=== PATIENT | female | born 1985 | race Two or more races ===

== ENCOUNTER 2017-04-11 23:51 | Inpatient (IN) | payer BC ==
[2017-04-12] MEDS ORDERED: Nalbuphine 10 MG/1 ML Vial IVPUSH PRN ×2 (00:35→22:00)
[2017-04-12] MEDS ORDERED: Water For Irrigation,Sterile 1,000 ML Container IRR PRN (00:35)
[2017-04-12] MEDS ORDERED: Lidocaine 1% 50 ML MDV INJECT PRN (00:35)
[2017-04-12] MEDS ORDERED: Methylergonovine 0.2 MG/1 ML Amp IM PRN (00:35)
[2017-04-12] MEDS ORDERED: Ampicillin 2 GM in Sodium Chloride 0.9% 100 ML IV ONE ×2 (00:35→12:31)
[2017-04-12] MEDS ORDERED: Terbutaline 1 MG/ML SDV SUBCUT PRN (00:35)
[2017-04-12] MEDS ORDERED: Carboprost Tromethamine 250 MCG/1 ML Amp IM PRN (00:35)
[2017-04-12] MEDS ORDERED: Misoprostol 200 MCG Tab PO PRN (00:35)
[2017-04-12] MEDS ORDERED: Sodium Chloride 0.9% 2.5 ML Syringe FLUSH PRN (00:35)
[2017-04-12] MEDS ORDERED: Sodium Chloride 0.9% 10 ML Syringe FLUSH PRN (00:35)
[2017-04-12] MEDS ORDERED: Oxytocin/0.9 % Sodium Chloride 30 UNIT/500 ML BAG IV SCH ×2 (00:45)
[2017-04-12] MEDS ORDERED: Misoprostol 25 MCG (1/4 of 100 MCG) Tab VAG SCH (00:45)
[2017-04-12] MEDS: Lactated Ringers 1,000 ML IV SCH ×3 (00:57→19:36)
[2017-04-12] MEDS: Misoprostol 25 MCG (1/4 of 100 MCG) Tab VAG PRN ×2 (01:25→05:19)
[2017-04-12] MEDS: Misoprostol 200 MCG Tab PO SCH ×2 (01:28→05:21)
--- NOTE | 2017-04-12 08:04 | PCM.LDHP ---
L&D History of Present Illness - General Date of Service: 04/12/17 Admit Problem/Dx: Patient Status Order with Admit Dx/Problem 04/12/17 00:35 Patient Status [ADT] Routine Admission Diagnosis/Problem Admission Diagnosis/Problem Planned 04/12/17 07:58 31 yo EDC 04/06/2017 40 6/7wk, O+, RI, GBS pos. 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: Social & Family History - Family History HEENT: Reports: None Cardiac: Reports: Hypertension - Tobacco Use Smoking Status *Q: Never Smoker Second Hand Smoke Exposure: No - Recreational Drug Use Recreational Drug Use: No H&P Review of Systems - Review of Systems: Review Of Systems: See Below General: Reports: No Symptoms HEENT: Reports: No Symptoms Pulmonary: Reports: No Symptoms Cardiovascular: Reports: No Symptoms Gastrointestinal: Reports: No Symptoms Genitourinary: Reports: No Symptoms Musculoskeletal: Reports: No Symptoms Skin: Reports: No Symptoms Psychiatric: Reports: No Symptoms Neurological: Reports: No Symptoms Hematologic/Lymphatic: Reports: No Symptoms Immunologic: Reports: No Symptoms L&D Exam - Exam Exam: See Below - Vital Signs Weight: 87.997 kg - OB Specific Fundal Height In cm: 41 Contraction Intensity: Mild to Moderate Movement: Active Heart Tones: Present Presentation: Vertex Estimated Weight: 3300 - Exam General: Alert, Oriented, Cooperative Lungs: Normal Respiratory Effort GI/Abdominal Exam: Soft, Non-Tender Rectal Exam: Deferred Extremities: Normal Range of Motion, Non-Tender, No Pedal Edema, Normal Capillary Refill Neurological: Reflexes Equal Bilateral, Normal Gait, Normal Speech, Normal Tone Psychiatric: Alert, Normal Affect, Normal Mood - Patient Data Lab Results Last 24 hrs: Laboratory Results - last 24 hr 04/12/17 04/12/17 Range/Units 00:57 00:57 WBC 10.22 (4.0-11.0) K/uL RBC 4.21 L (4.30-5.90) M/uL Hgb 11.7 L (12.0-16.0) g/dL Hct 35.1 L (36.0-46.0) % MCV 83.4 (80.0-98.0) fL MCH 27.8 (27.0-32.0) pg MCHC 33.3 (31.0-37.0) g/dL RDW Std Deviation 44.6 (28.0-62.0) fl RDW Coeff of Tracie 15 (11.0-15.0) % Plt Count 246 (150-400) K/uL MPV 12.10 H (7.40-12.00) fL Nucleated RBC % 0.0 /100WBC Nucleated RBCs # 0 K/uL Blood Type O POSITIVE Antibody Screen NEGATIVE Result Diagrams: 04/12/17 00:57 - Problem List (1) Supervision of normal IUP (intrauterine ) in primigravida SNOMED Code(s): 13517643, 020014249, 727050435 ICD Code: Z34.00 - ENCNTR FOR SUPRVSN OF NORMAL FIRST , UNSP TRIMESTER Status: Acute Priority: High Current Visit: Yes Qualifiers: Trimester: third trimester Qualified Code(s): Z34.03 - Encounter for supervision of normal first , third trimester (2) Post-dates SNOMED Code(s): 23224396 ICD Code: O48.0 - POST-TERM Status: Acute Priority: High Current Visit: Yes Qualifiers: Post-term type: 40-42 weeks gestation Qualified Code(s): O48.0 - Post-term Problem List Initiated/Reviewed/Updated: Yes Orders Last 24hrs: Active Orders 24 hr Category Date Time Status Patient Status [ADT] Routine ADT 04/12/17 00:35 Active Bedrest Bathroom Privileges [RC] ASDIRECTED Care 04/12/17 00:35 Active Communication Order [RC] ASDIRECTED Care 04/12/17 00:35 Active Communication Order [RC] ASDIRECTED Care 04/12/17 00:35 Active Communication Order [RC] ASDIRECTED Care 04/12/17 00:35 Active Heart Tones [RC] CONTINUOUS Care 04/12/17 00:35 Active Non Stress Test [RC] PER UNIT ROUTINE Care 04/12/17 00:35 Active May Shower [RC] ASDIRECTED Care 04/12/17 00:35 Active Notify Provider [RC] PRN Care 04/12/17 00:35 Active Notify Provider [RC] PRN Care 04/12/17 00:35 Active Notify Provider [RC] PRN Care 04/12/17 00:35 Active Notify Provider [RC] STAT Care 04/12/17 00:35 Active Oxygen Therapy [RC] ASDIRECTED Care 04/12/17 00:35 Active Up ad Torri [RC] ASDIRECTED Care 04/12/17 00:35 Active Vaginal Exam [RC] PRN Care 04/12/17 00:35 Active Vaginal Exam [RC] PRN Care 04/12/17 00:35 Active Vital Signs [RC] PER UNIT ROUTINE Care 04/12/17 00:35 Active Vital Signs [RC] PER UNIT ROUTINE Care 04/12/17 00:35 Active Carboprost Tromethamine [Hemabate DS] Med 04/12/17 00:35 Active 250 mcg IM ASDIRECTED PRN Lactated Ringers [Ringers, Lactated] 1,000 ml Med 04/12/17 00:45 Active IV ASDIRECTED Lidocaine 1% [Xylocaine 1%] Med 04/12/17 00:35 Active 50 ml INJECT .ONCE PRN Methylergonovine [Methergine] Med 04/12/17 00:35 Active 0.2 mg IM ASDIRECTED PRN Misoprostol [Cytotec] Med 04/12/17 00:35 Active 200 mcg PO .ONCE PRN Misoprostol [Cytotec] Med 04/12/17 09:20 Active 25 mcg PO Q4H Misoprostol [Cytotec] Med 04/12/17 00:45 Active 25 mcg VAG .ONCE Misoprostol [Cytotec] Med 04/12/17 00:35 Active 25 mcg VAG Q4H PRN Nalbuphine [Nubain] Med 04/12/17 00:35 Active 10 mg IVPUSH Q1H PRN Oxytocin/0.9 % Sodium Chloride [Oxytocin 30 Unit/500 ML Med 04/12/17 00:45 Active -NS] 30 unit in 500 ml IV TITRATE Oxytocin/0.9 % Sodium Chloride [Oxytocin 30 Unit/500 ML Med 04/12/17 00:45 Active -NS] 30 unit in 500 ml IV TITRATE Sodium Chloride 0.9% [Saline Flush] Med 04/12/17 00:35 Active 10 ml FLUSH ASDIRECTED PRN Sodium Chloride 0.9% [Saline Flush] Med 04/12/17 00:35 Active 2.5 ml FLUSH ASDIRECTED PRN Terbutaline [Brethine] Med 04/12/17 00:35 Active 0.25 mg SUBCUT ASDIRECTED PRN Water For Irrigation,Sterile [Sterile Water for Med 04/12/17 00:35 Active Irrigation] 1,000 ml IRR ASDIRECTED PRN Scalp Electrode [WOMSER] Per Unit Routine Oth 04/12/17 00:35 Ordered Medication Administration Instruction [OM.PC] Q3H Oth 04/12/17 00:45 Ordered Peripheral IV Insertion Adult [OM.PC] Routine Oth 04/12/17 00:35 Ordered Resuscitation Status Routine Resus Stat 04/12/17 00:35 Ordered Medication Orders Carboprost Tromethamine (Hemabate Ds) 250 mcg IM ASDIRECTED PRN PRN Reason: Post Hemorrhage Lactated Ringer's (Ringers, Lactated) 1,000 mls @ 150 mls/hr IV ASDIRECTED ML Last Admin: 04/12/17 00:57 Dose: 999 mls/hr Oxytocin/Sodium Chloride (Oxytocin 30 Unit/500 Ml-Ns) 30 unit in 500 mls @ 500 mls/hr IV TITRATE ML Oxytocin/Sodium Chloride (Oxytocin 30 Unit/500 Ml-Ns) 30 unit in 500 mls @ 2 mls/hr IV TITRATE ML; 2 MUNITS/MIN PRN Reason: Protocol Lidocaine HCl (Xylocaine 1%) 50 ml INJECT .ONCE PRN PRN Reason: Laceration repair Methylergonovine Maleate (Methergine) 0.2 mg IM ASDIRECTED PRN PRN Reason: Post Hemorrhage Misoprostol (Cytotec) 200 mcg PO .ONCE PRN PRN Reason: Post Hemorrhage Misoprostol (Cytotec) 25 mcg VAG .ONCE ML Misoprostol (Cytotec) 25 mcg VAG Q4H PRN PRN Reason: Cervical Ripening Last Admin: 04/12/17 05:19 Dose: 25 mcg Admin: 04/12/17 01:25 Dose: 25 mcg Misoprostol (Cytotec) 25 mcg PO Q4H ML Nalbuphine HCl (Nubain) 10 mg IVPUSH Q1H PRN PRN Reason: Pain (severe 7-10) Sodium Chloride (Saline Flush) 10 ml FLUSH ASDIRECTED PRN PRN Reason: Keep Vein Open Sodium Chloride (Saline Flush) 2.5 ml FLUSH ASDIRECTED PRN PRN Reason: Keep Vein Open Sterile Water (Sterile Water For Irrigation) 1,000 ml IRR ASDIRECTED PRN PRN Reason: delivery Terbutaline Sulfate (Brethine) 0.25 mg SUBCUT ASDIRECTED PRN PRN Reason: Tacysystole Assessment/Plan Comment:: IOL A:31 yo EDC 04/06/2017 40 6/7wk, O+, RI, GBS pos. IOL for post dates P:IOL with cytotec to pitocin, pain med / epidural prn, anticipate . Dr Schilling updated
[2017-04-12] MEDS ORDERED: Ropivacaine 100 ML ONE (13:19)
[2017-04-12] MEDS ORDERED: fentaNYL 100 MCG/2 ML SDV ONE ×2 (13:19→20:33)
--- NOTE | 2017-04-12 14:07 | PCM.PREANE ---
Preanesthetic Assessment - Anesthesia/Transfusion/Family Hx Anesthesia History: No Prior Anesthesia Family History of Anesthesia Reaction: No Transfusion History: No Prior Transfusion(s) Intubation History: Unknown - Review of Systems General: No Symptoms Pulmonary: No Symptoms Cardiovascular: No Symptoms Gastrointestinal: No Symptoms Neurological: No Symptoms Other: Reports: None (maternal VS good and stable at this time. care revealed no problems. ) - Physical Assessment NPO Status Date: 04/12/17 NPO Status Time: 12:30 Height: 5 ft 4 in Weight: 194 lb ASA Class: 1 Mental Status: Alert & Oriented x3 Airway Class: Mallampati = 3 Dentition: Reports: Normal Dentition Thyro-Mental Finger Breadths: 3 Mouth Opening Finger Breadths: 3 ROM/Head Extension: Full Lungs: Clear to Auscultation Cardiovascular: Regular Rate, Regular Rhythm - Lab Values: Laboratory Last Values WBC 10.22 K/uL (4.0-11.0) 04/12/17 00:57 RBC 4.21 M/uL (4.30-5.90) L 04/12/17 00:57 Hgb 11.7 g/dL (12.0-16.0) L 04/12/17 00:57 Hct 35.1 % (36.0-46.0) L 04/12/17 00:57 MCV 83.4 fL (80.0-98.0) 04/12/17 00:57 MCH 27.8 pg (27.0-32.0) 04/12/17 00:57 MCHC 33.3 g/dL (31.0-37.0) 04/12/17 00:57 RDW Std Deviation 44.6 fl (28.0-62.0) 04/12/17 00:57 RDW Coeff of Tracie 15 % (11.0-15.0) 04/12/17 00:57 Plt Count 246 K/uL (150-400) 04/12/17 00:57 MPV 12.10 fL (7.40-12.00) H 04/12/17 00:57 Nucleated RBC % 0.0 /100WBC 04/12/17 00:57 Nucleated RBCs # 0 K/uL 04/12/17 00:57 Blood Type O POSITIVE 04/12/17 00:57 Antibody Screen NEGATIVE 04/12/17 00:57 - Allergies Allergies/Adverse Reactions: Allergies Allergy/AdvReac Type Severity Reaction Status Date / Time No Known Allergies Allergy Verified 04/12/17 00:31 - Acknowledgements Anesthesia Type Planned: Epidural Pt an Appropriate Candidate for the Planned Anesthesia: Yes Alternatives and Risks of Anesthesia Discussed w Pt/Guardian: Yes Pt/Guardian Understands and Agrees with Anesthesia Plan: Yes PreAnesthesia Questionnaire - Past Health History Medical/Surgical History: 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 Smoking Status *Q: Never Smoker Second Hand Smoke Exposure: No Recreational Drug Use History: No - HOME MEDS Home Medications: Home Meds Vit W-Ca,Fe,FA(<1 mg) [ Vitamins] 1 tab PO DAILY 04/12/17 [ History] - CURRENT (IN HOUSE) MEDS Current Meds: Current Medications Carboprost Tromethamine (Hemabate Ds) 250 mcg IM ASDIRECTED PRN PRN Reason: Post Hemorrhage Lactated Ringer's (Ringers, Lactated) 1,000 mls @ 150 mls/hr IV ASDIRECTED ML Last Admin: 04/12/17 13:56 Dose: 999 mls/hr Oxytocin/Sodium Chloride (Oxytocin 30 Unit/500 Ml-Ns) 30 unit in 500 mls @ 500 mls/hr IV TITRATE ML Oxytocin/Sodium Chloride (Oxytocin 30 Unit/500 Ml-Ns) 30 unit in 500 mls @ 2 mls/hr IV TITRATE ML; 2 MUNITS/MIN PRN Reason: Protocol Last Titration: 04/12/17 13:57 Dose: 4 munits/min, 4 mls/hr Lidocaine HCl (Xylocaine 1%) 50 ml INJECT .ONCE PRN PRN Reason: Laceration repair Methylergonovine Maleate (Methergine) 0.2 mg IM ASDIRECTED PRN PRN Reason: Post Hemorrhage Misoprostol (Cytotec) 200 mcg PO .ONCE PRN PRN Reason: Post Hemorrhage Misoprostol (Cytotec) 25 mcg VAG .ONCE ML Misoprostol (Cytotec) 25 mcg VAG Q4H PRN PRN Reason: Cervical Ripening Last Admin: 04/12/17 05:19 Dose: 25 mcg Misoprostol (Cytotec) 25 mcg PO Q4H ML Nalbuphine HCl (Nubain) 10 mg IVPUSH Q1H PRN PRN Reason: Pain (severe 7-10) Last Admin: 04/12/17 12:49 Dose: 10 mg Sodium Chloride (Saline Flush) 10 ml FLUSH ASDIRECTED PRN PRN Reason: Keep Vein Open Sodium Chloride (Saline Flush) 2.5 ml FLUSH ASDIRECTED PRN PRN Reason: Keep Vein Open Sterile Water (Sterile Water For Irrigation) 1,000 ml IRR ASDIRECTED PRN PRN Reason: delivery Terbutaline Sulfate (Brethine) 0.25 mg SUBCUT ASDIRECTED PRN PRN Reason: Tacysystole Discontinued Medications Fentanyl (Sublimaze) Confirm Administered Dose 100 mcg .ROUTE .STK-MED ONE Stop: 04/12/17 13:20 Ampicillin Sodium 2 gm/ Sodium (Chloride) 100 mls @ 200 mls/hr IV ONETIME ONE Stop: 04/12/17 01:04 Ampicillin Sodium 2 gm/ Sodium (Chloride) 100 mls @ 200 mls/hr IV ONETIME ONE Stop: 04/12/17 13:00 Last Admin: 04/12/17 12:53 Dose: 200 mls/hr Ropivacaine (Naropin 0.2%) Confirm Administered Dose 100 mls @ as directed .ROUTE .STK-MED ONE Stop: 04/12/17 13:20 Misoprostol (Cytotec) 25 mcg PO Q4H [facility] Last Admin: 04/12/17 05:21 Dose: 25 mcg
[2017-04-12] MEDS: Ampicillin 1 GM in Sodium Chloride 0.9% 50 ML IV SCH ×2 (17:17→23:22)
[2017-04-12] MEDS ORDERED: Morphine PF 10 MG/10 ML SDV ONE (20:33)
[2017-04-12] MEDS ORDERED: Lidocaine 2% 5 ML SDV ONE (20:35)
[2017-04-12] MEDS ORDERED: Sodium Chloride 0.9% 20 ML ONE (21:02)
[2017-04-12] MEDS ORDERED: Octyl 2-Cyanoacrylate 1 Tube ONE (21:22)
[2017-04-12] MEDS ORDERED: Oxytocin 10 Units/1 ML SDV ONE (21:23)
[2017-04-12] MEDS ORDERED: ePHEDrine 50 MG/ML SDV ONE (21:24)
[2017-04-12] MEDS ORDERED: ceFAZolin 1 GM Vial ONE (21:25)
[2017-04-12] MEDS ORDERED: Lanolin 100% Cream 7 GM Tube TOP PRN (21:27)
[2017-04-12] MEDS ORDERED: Acetaminophen/oxyCODONE 325-5 MG Tab PO PRN (21:27)
[2017-04-12] MEDS ORDERED: Ondansetron 4 MG/2 ML SDV IV PRN (21:27)
[2017-04-12] MEDS ORDERED: diphenhydrAMINE 50 MG/ML SDV IVPUSH PRN (21:27)
[2017-04-12] MEDS ORDERED: Bisacodyl 10 MG Supp RECTAL PRN (21:27)
[2017-04-12] MEDS ORDERED: Nalbuphine 10 MG/1 ML Vial ONE (21:29)
[2017-04-12] MEDS ORDERED: Lactated Ringers 1,000 ML IV SCH (21:30)
--- NOTE | 2017-04-12 21:31 | PCM.OPNOTE ---
- General Post-Op/Procedure Note Date of Surgery/Procedure: 04/12/17 Operative Procedure(s): Primary C/Section, IUP40+ Pre Op Diagnosis: IUP 40+wk nonereassuring FHR Post-Op Diagnosis: Same Anesthesia Technique: Epidural Primary Surgeon: Ceasar Schilling [employer] Supervisor: Aminta Zacarias EBL in mLs: 700 Complications: None Condition: Good
--- NOTE | 2017-04-12 22:03 | PCM.POSTAN ---
POST ANESTHESIA ASSESSMENT - MENTAL STATUS Mental Status: Alert - VITAL SIGNS Pulse Rate: 76 SaO2: 100 Resp Rate: 16 Blood Pressure: 114/52 Temperature: 36.2 C - RESPIRATORY Respiratory Status: Respiratory Rate WNL, Airway Patent, O2 Saturation Stable - CARDIOVASCULAR CV Status: Pulse Rate WNL, Blood Pressure Stable - GASTROINTESTINAL GI Status: No Symptoms - PAIN Pain Score: 0 - POST OP HYDRATION Hydration Status: Adequate & Stable
[2017-04-12] MEDS: Ketorolac 30 MG/ML SDV IVPUSH SCH (22:05)
--- NOTE | 2017-04-12 22:08 | OR ---
SURGEON: Ceasar Schilling MD DATE OF PROCEDURE: PREOPERATIVE DIAGNOSIS: Intrauterine , 40+ weeks, non-reassuring heart rate, remote from delivery. POSTOPERATIVE DIAGNOSIS: Intrauterine , 40+ weeks, non-reassuring heart rate, remote from delivery. OPERATION PERFORMED: Primary low transverse section. NUCLEAR MEDICINE PHYSICIAN: Aminta Zacarias CNM. ANESTHESIA: Epidural, Alejandra Christopher Trotter and Dr. Ag. ESTIMATED BLOOD LOSS: 700 mL. COMPLICATIONS: None. FINDING: Female fetus, score reported to be 8 and 9, the weight is not available. INDICATIONS FOR SURGERY: This patient is a primigravida. She is 31. She is followed in our clinic primarily by nurse engineering design supervisor Aminta Zacarias, she is 40+ weeks. She is admitted for induction. She responded initially to the induction. She progressed 4 cm with artificial rupture of the membrane. The patient is GBS positive. She started on appropriate antibiotic. However, she started having repeat late deceleration with every contraction, category II heart rate and she stayed to be 4 cm, so a non-reassuring heart rate is diagnosed, remote from the delivery, a decision was made to do primary low transverse section. PROCEDURE IN DETAIL: The patient was brought to the OR. After adequate level of epidural anesthesia, the patient was prepped and draped in sterile fashion as usual. Low transverse Pfannenstiel skin incision was done. Kiko's fascia, rectus fascia was opened in direction of the incision. The 2 recti muscles were and peritoneal cavity was entered. Bladder flap was raised in the usual manner. Low transverse uterine incision was done extending manually and fetus was in the vertex position, delivered without any problem. Retail Banker, Dr. Arben Marcus was present at the time of the delivery. The fetus cried immediately. Later on, the score was reported to be 8 and 9. The weight is not available. The placenta delivered spontaneous complete and intact after collecting blood for the patient, per the patient request for storage and freezing. Next, repair of the lower uterine segment in 2-0 Vicryl continuous interlocking in 2 layers. Reperitonealization done with 3-0 Vicryl continuous and then the peritoneal cavity evacuated completely from all blood and blood clot and closed with 3-0 Vicryl continuous. The rectus fascia was closed with #1 PDS double strand continuous. Kiko's fascia was closed with 3-0 Vicryl continuous and the skin closed with 3-0 Vicryl on a Karsten needle in a subcuticular fashion. Instrument and sponge count were correct. The patient tolerated the procedure well, went to recovery room in stable general condition. YVONNE LILLY /[id number]
[2017-04-13] MEDS: Lactated Ringers 1,000 ML IV SCH (00:35)
[2017-04-13] MEDS: Ketorolac 30 MG/ML SDV IVPUSH SCH ×4 (03:30→21:24)
[2017-04-13] MEDS: Misoprostol 25 MCG (1/4 of 100 MCG) Tab PO SCH ×3 (04:43→11:26)
[2017-04-13] MEDS: Ampicillin 1 GM in Sodium Chloride 0.9% 50 ML IV SCH ×3 (04:44→11:26)
[2017-04-13] MEDS: Docusate Sodium 100 MG Cap PO SCH ×2 (09:13→21:24)
--- NOTE | 2017-04-13 11:08 | PCM.PNPP ---
- General Info Date of Service: 04/13/17 Admission Dx/Problem (Free Text): Patient Status Order with Admit Dx/Problem 04/12/17 00:35 Patient Status [ADT] Routine Admission Diagnosis/Problem Admission Diagnosis/Problem Planned 04/12/17 07:58 31 yo EDC 04/06/2017 40 6/7wk, O+, RI, GBS pos. IOL for post dates Functional Status: Reports: Pain Controlled, Tolerating Diet, Ambulating - Review of Systems General: Reports: No Symptoms HEENT: Reports: No Symptoms Pulmonary: Reports: No Symptoms Cardiovascular: Reports: No Symptoms Gastrointestinal: Reports: No Symptoms Genitourinary: Reports: No Symptoms Musculoskeletal: Reports: No Symptoms Skin: Reports: No Symptoms Neurological: Reports: No Symptoms Psychiatric: Reports: No Symptoms - General Info Date of Service: 04/13/17 - Patient Data Vital Signs - Most Recent: Last Vital Signs Temp 36.6 C 04/13/17 07:52 Pulse 72 04/13/17 07:52 Resp 16 04/13/17 10:33 BP 127/65 04/13/17 07:52 Pulse Ox 97 04/13/17 10:33 Weight - Most Recent: 87.997 kg I&O - Last 24 Hours: Intake & Output 04/12/17 04/13/17 04/13/17 22:59 06:59 14:59 Intake Total 1600 715 Output Total 475 650 Balance 1125 65 Lab Results - Last 24 Hours: Laboratory Results - last 24 hr 04/13/17 Range/Units 04:47 Hgb 10.2 L (12.0-16.0) g/dL Hct 30.2 L (36.0-46.0) % Med Orders - Current: Current Medications Bisacodyl (Dulcolax) 10 mg RECTAL .ONCE PRN PRN Reason: Constipation Carboprost Tromethamine (Hemabate Ds) 250 mcg IM ASDIRECTED PRN PRN Reason: Post Hemorrhage Diphenhydramine HCl (Benadryl) 25 mg IVPUSH Q6H PRN PRN Reason: Itching or Nausea Docusate Sodium (Colace) 100 mg PO BID ML Last Admin: 04/13/17 09:13 Dose: 100 mg Emollient Ointment (Lansinoh Hpa) 0 gm TOP ASDIRECTED PRN PRN Reason: Sore Nipples Last Admin: 04/13/17 06:52 Dose: 7 gm Lactated Ringer's (Ringers, Lactated) 1,000 mls @ 150 mls/hr IV ASDIRECTED [facility] Last Admin: 04/13/17 00:35 Dose: 150 mls/hr Oxytocin/Sodium Chloride (Oxytocin 30 Unit/500 Ml-Ns) 30 unit in 500 mls @ 500 mls/hr IV TITRATE ML Oxytocin/Sodium Chloride (Oxytocin 30 Unit/500 Ml-Ns) 30 unit in 500 mls @ 2 mls/hr IV TITRATE [facility]; 2 MUNITS/MIN PRN Reason: Protocol Last Titration: 04/12/17 18:40 Dose: 0 munits/min, 0 mls/hr Ampicillin Sodium 1 gm/ Sodium (Chloride) 50 mls @ 100 mls/hr IV Q4H [facility] Last Admin: 04/13/17 07:59 Dose: Not Given Lactated Ringer's (Ringers, Lactated) 1,000 mls @ 125 mls/hr IV ASDIRECTED [facility] Ibuprofen (Motrin) 800 mg PO Q8H PRN PRN Reason: mild pain or fever Ketorolac Tromethamine (Toradol) 30 mg IVPUSH Q6H [facility] Stop: 04/13/17 21:31 Last Admin: 04/13/17 09:13 Dose: 30 mg Lidocaine HCl (Xylocaine 1%) 50 ml INJECT .ONCE PRN PRN Reason: Laceration repair Methylergonovine Maleate (Methergine) 0.2 mg IM ASDIRECTED PRN PRN Reason: Post Hemorrhage Misoprostol (Cytotec) 200 mcg PO .ONCE PRN PRN Reason: Post Hemorrhage Misoprostol (Cytotec) 25 mcg VAG .ONCE ML Misoprostol (Cytotec) 25 mcg VAG Q4H PRN PRN Reason: Cervical Ripening Last Admin: 04/12/17 05:19 Dose: 25 mcg Misoprostol (Cytotec) 25 mcg PO Q4H [facility] Last Admin: 04/13/17 07:59 Dose: Not Given Nalbuphine HCl (Nubain) 10 mg IVPUSH Q3H PRN PRN Reason: Pain (moderate 4-6) Stop: 04/13/17 18:00 Ondansetron HCl (Zofran) 4 mg IV Q4H PRN PRN Reason: Nausea/Vomiting Oxycodone/Acetaminophen (Percocet 325-5 Mg) 1 tab PO Q4H PRN PRN Reason: Pain (moderate 4-6) Oxycodone/Acetaminophen (Percocet 325-5 Mg) 2 tab PO Q4H PRN PRN Reason: Pain (moderate 4-6) Sodium Chloride (Saline Flush) 10 ml FLUSH ASDIRECTED PRN PRN Reason: Keep Vein Open Sodium Chloride (Saline Flush) 2.5 ml FLUSH ASDIRECTED PRN PRN Reason: Keep Vein Open Sterile Water (Sterile Water For Irrigation) 1,000 ml IRR ASDIRECTED PRN PRN Reason: delivery Terbutaline Sulfate (Brethine) 0.25 mg SUBCUT ASDIRECTED PRN PRN Reason: Tacysystole Discontinued Medications Cefazolin Sodium (Ancef) Confirm Administered Dose 2 gm .ROUTE .STK-MED ONE Stop: 04/12/17 21:26 Ephedrine Sulfate (Ephedrine Sulfate) Confirm Administered Dose 50 mg .ROUTE .STK-MED ONE Stop: 04/12/17 21:25 Fentanyl (Sublimaze) Confirm Administered Dose 100 mcg .ROUTE .STK-MED ONE Stop: 04/12/17 13:20 Last Admin: 04/13/17 04:44 Dose: Not Given Fentanyl (Sublimaze) Confirm Administered Dose 100 mcg .ROUTE .STK-MED ONE Stop: 04/12/17 20:34 Ampicillin Sodium 2 gm/ Sodium (Chloride) 100 mls @ 200 mls/hr IV ONETIME ONE Stop: 04/12/17 01:04 Last Admin: 04/13/17 04:42 Dose: Not Given Ampicillin Sodium 2 gm/ Sodium (Chloride) 100 mls @ 200 mls/hr IV ONETIME ONE Stop: 04/12/17 13:00 Last Admin: 04/12/17 12:53 Dose: 200 mls/hr Ropivacaine (Naropin 0.2%) Confirm Administered Dose 100 mls @ as directed .ROUTE .STK-MED ONE Stop: 04/12/17 13:20 Last Admin: 04/13/17 04:44 Dose: Not Given Sodium Chloride (Normal Saline) Confirm Administered Dose 20 mls @ as directed .ROUTE .STK-MED ONE Stop: 04/12/17 21:03 Lidocaine (Xylocaine-Mpf 2%) Confirm Administered Dose 20 ml .ROUTE .STK-MED ONE Stop: 04/12/17 20:36 Misoprostol (Cytotec) 25 mcg PO Q4H ML Last Admin: 04/12/17 05:21 Dose: 25 mcg Morphine Sulfate (Duramorph Pf) Confirm Administered Dose 10 mg .ROUTE .STK-MED ONE Stop: 04/12/17 20:34 Nalbuphine HCl (Nubain) 10 mg IVPUSH Q1H PRN PRN Reason: Pain (severe 7-10) Last Admin: 04/12/17 12:49 Dose: 10 mg Nalbuphine HCl (Nubain) Confirm Administered Dose 10 mg .ROUTE .STK-MED ONE Stop: 04/12/17 21:30 Octyl Cyanoacrylate (Dermabond Advance) Confirm Administered Dose 1 applic .ROUTE .STK-MED ONE Stop: 04/12/17 21:23 Oxytocin (Pitocin) Confirm Administered Dose 20 unit .ROUTE .STK-MED ONE Stop: 04/12/17 21:24 - Infant Interaction Infant Disposition, : to Nursery Infant Interaction: Holding Infant Infant Feeding: Breastfed ; Nursed Well, Encouraged to Breastfeed Support Person: - Recovery Exam Fundal Tone: Firm Fundal Level: At Umbilicus Fundal Placement: Midline Lochia Amount: Scant Lochia Color: Rubra/Red Perineum Description: Intact, Minimal Bruising/Swelling Episiotomy/Laceration: None Bladder Status: Indwelling Catheter in Place Urinary Elimination: Indwelling Catheter - Exam General: Alert, Oriented, Cooperative, No Acute Distress Lungs: Clear to Auscultation, Normal Respiratory Effort Cardiovascular: Regular Rate, Regular Rhythm, No Murmurs GI/Abdominal Exam: Soft, Non-Tender Extremities: Normal Range of Motion, Non-Tender, No Pedal Edema, Normal Capillary Refill Skin: Warm, Dry, Intact Wound/Incisions: Healing Well, Dressing Dry and Intact Neurological: No New Focal Deficit, Normal Speech, Normal Tone - Problem List & Annotations (1) Supervision of normal IUP (intrauterine ) in primigravida SNOMED Code(s): 91663116, 184224956, 768448486 Code(s): Z34.00 - ENCNTR FOR SUPRVSN OF NORMAL FIRST , UNSP TRIMESTER Status: Acute Priority: High Current Visit: Yes Qualifiers: Trimester: third trimester Qualified Code(s): Z34.03 - Encounter for supervision of normal first , third trimester (2) Post-dates SNOMED Code(s): 35701647 Code(s): O48.0 - POST-TERM Status: Acute Priority: High Current Visit: Yes Qualifiers: Post-term type: 40-42 weeks gestation Qualified Code(s): O48.0 - Post-term (3) Status post delivery SNOMED Code(s): 829019459 Code(s): Z98.891 - HISTORY OF UTERINE SCAR FROM PREVIOUS SURGERY Status: Acute Priority: High Current Visit: Yes - Problem List Review Problem List Initiated/Reviewed/Updated: Yes - My Orders Last 24 Hours: My Active Orders 04/12/17 17:00 Ampicillin 1 gm Sodium Chloride 0.9% [Normal Saline] 50 ml IV Q4H - Assessment Assessment:: Post day 1 A: VSS, AF, breast feeding well, FF, scant bleeding, incision dressing dry/ intact. Up walking in room. Stable - Plan Plan:: IOL A:31 yo EDC 04/06/2017 40 6/7wk, O+, RI, GBS pos. IOL for post dates P:IOL with cytotec to pitocin, pain med / epidural prn, anticipate . Dr Schilling updated PP day 1 P: continue pp plan of care.
--- NOTE | 2017-04-13 11:29 | PCM48HPAN ---
Post Anesthesia Note - EVALUATION WITHIN 48HRS OF ANESTHETIC Vital Signs in Normal Range: Yes Patient Participated in Evaluation: Yes Respiratory Function Stable: Yes Airway Patent: Yes Cardiovascular Function Stable: Yes Hydration Status Stable: Yes Pain Control Satisfactory: Yes Nausea and Vomiting Control Satisfactory: Yes Mental Status Recovered: Yes - COMMENTS/OBSERVATIONS Free Text/Narrative:: Good analgesia
[2017-04-14] MEDS: Acetaminophen/oxyCODONE 325-5 MG Tab PO PRN ×2 (05:16→22:58)
--- NOTE | 2017-04-14 06:56 | PCM.DCSUM1 ---
Discharge Summary - Hospital Course Free Text/Narrative:: Discharge home with infant, Follow up in 10 days for incision check and 6 weeks for post exam. - Discharge Data Discharge Date: 04/14/17 Discharge Disposition: Home, Self-Care 01 Condition: Good - Discharge Diagnosis/Problem(s) (1) Supervision of normal IUP (intrauterine ) in primigravida SNOMED Code(s): 20444956, 638472600, [id number] ICD Code: Z34.00 - ENCNTR FOR SUPRVSN OF NORMAL FIRST , UNSP TRIMESTER Status: Acute Priority: High Current Visit: Yes Qualifiers: Trimester: third trimester Qualified Code(s): Z34.03 - Encounter for supervision of normal first , third trimester (2) Post-dates SNOMED Code(s): 79738186 ICD Code: O48.0 - POST-TERM Status: Acute Priority: High Current Visit: Yes Qualifiers: Post-term type: 40-42 weeks gestation Qualified Code(s): O48.0 - Post-term (3) Status post delivery SNOMED Code(s): 541215714 ICD Code: Z98.891 - HISTORY OF UTERINE SCAR FROM PREVIOUS SURGERY Status: Acute Priority: High Current Visit: Yes - Patient Summary/Data Operative Procedure(s) Performed: Primary C/Section, IUP40+ - Patient Instructions Diet: Usual Diet as Tolerated Activity: As Tolerated, No Strenuous Activities, Rest and Relax Today Driving: May Drive Today Showering/Bathing: May Shower Wound/Incision Care: Keep Operative Site/Wound Site Clean and Dry Notify Provider of: Fever, Increased Pain, Swelling and Redness, Drainage, Nausea and/or Vomiting Other/Special Instructions: Discharge home with , Follow up in 10 days for incision check and 6 weeks for post exam. - Discharge Plan Home Medications: Home Meds Vit W-Ca,Fe,FA(<1 mg) [ Vitamins] 1 tab PO DAILY 04/12/17 [ History] - General Info Date of Service: 04/14/17 Admission Dx/Problem (Free Text: Patient Status Order with Admit Dx/Problem 04/12/17 00:35 Patient Status [ADT] Routine Admission Diagnosis/Problem Admission Diagnosis/Problem Planned 04/12/17 07:58 31 yo EDC 04/06/2017 40 6/7wk, O+, RI, GBS pos. IOL for post dates Functional Status: Reports: Pain Controlled, Tolerating Diet, Ambulating, Urinating - Review of Systems General: Reports: No Symptoms HEENT: Reports: No Symptoms Pulmonary: Reports: No Symptoms Cardiovascular: Reports: No Symptoms Gastrointestinal: Reports: No Symptoms Genitourinary: Reports: No Symptoms Musculoskeletal: Reports: No Symptoms Skin: Reports: No Symptoms Neurological: Reports: No Symptoms Psychiatric: Reports: No Symptoms - Patient Data Vitals - Most Recent: Last Vital Signs Temp 36.9 C 04/14/17 05:00 Pulse 70 04/14/17 05:00 Resp 16 04/14/17 05:00 BP 121/64 04/14/17 05:00 Pulse Ox 97 04/14/17 05:00 Weight - Most Recent: 87.997 kg I&O - Last 24 hours: Intake & Output 04/13/17 04/13/17 04/14/17 14:59 22:59 06:59 Intake Total 500 Output Total 1200 500 Balance -1200 0 Med Orders - Current: Current Medications Bisacodyl (Dulcolax) 10 mg RECTAL .ONCE PRN PRN Reason: Constipation Carboprost Tromethamine (Hemabate Ds) 250 mcg IM ASDIRECTED PRN PRN Reason: Post Hemorrhage Diphenhydramine HCl (Benadryl) 25 mg IVPUSH Q6H PRN PRN Reason: Itching or Nausea Docusate Sodium (Colace) 100 mg PO BID ML Last Admin: 04/13/17 21:24 Dose: 100 mg Emollient Ointment (Lansinoh Hpa) 0 gm TOP ASDIRECTED PRN PRN Reason: Sore Nipples Last Admin: 04/13/17 06:52 Dose: 7 gm Lactated Ringer's (Ringers, Lactated) 1,000 mls @ 150 mls/hr IV ASDIRECTED ML Last Admin: 04/13/17 00:35 Dose: 150 mls/hr Oxytocin/Sodium Chloride (Oxytocin 30 Unit/500 Ml-Ns) 30 unit in 500 mls @ 500 mls/hr IV TITRATE ML Oxytocin/Sodium Chloride (Oxytocin 30 Unit/500 Ml-Ns) 30 unit in 500 mls @ 2 mls/hr IV TITRATE ML; 2 MUNITS/MIN PRN Reason: Protocol Last Titration: 04/12/17 18:40 Dose: 0 munits/min, 0 mls/hr Lactated Ringer's (Ringers, Lactated) 1,000 mls @ 125 mls/hr IV ASDIRECTED ML Ibuprofen (Motrin) 800 mg PO Q8H PRN PRN Reason: mild pain or fever Lidocaine HCl (Xylocaine 1%) 50 ml INJECT .ONCE PRN PRN Reason: Laceration repair Methylergonovine Maleate (Methergine) 0.2 mg IM ASDIRECTED PRN PRN Reason: Post Hemorrhage Misoprostol (Cytotec) 200 mcg PO .ONCE PRN PRN Reason: Post Hemorrhage Misoprostol (Cytotec) 25 mcg VAG .ONCE ML Ondansetron HCl (Zofran) 4 mg IV Q4H PRN PRN Reason: Nausea/Vomiting Oxycodone/Acetaminophen (Percocet 325-5 Mg) 1 tab PO Q4H PRN PRN Reason: Pain (moderate 4-6) Last Admin: 04/14/17 05:16 Dose: 1 tab Oxycodone/Acetaminophen (Percocet 325-5 Mg) 2 tab PO Q4H PRN PRN Reason: Pain (moderate 4-6) Sodium Chloride (Saline Flush) 10 ml FLUSH ASDIRECTED PRN PRN Reason: Keep Vein Open Sodium Chloride (Saline Flush) 2.5 ml FLUSH ASDIRECTED PRN PRN Reason: Keep Vein Open Sterile Water (Sterile Water For Irrigation) 1,000 ml IRR ASDIRECTED PRN PRN Reason: delivery Terbutaline Sulfate (Brethine) 0.25 mg SUBCUT ASDIRECTED PRN PRN Reason: Tacysystole Discontinued Medications Cefazolin Sodium (Ancef) Confirm Administered Dose 2 gm .ROUTE .STK-MED ONE Stop: 04/12/17 21:26 Ephedrine Sulfate (Ephedrine Sulfate) Confirm Administered Dose 50 mg .ROUTE .STK-MED ONE Stop: 04/12/17 21:25 Fentanyl (Sublimaze) Confirm Administered Dose 100 mcg .ROUTE .STK-MED ONE Stop: 04/12/17 13:20 Last Admin: 04/13/17 04:44 Dose: Not Given Fentanyl (Sublimaze) Confirm Administered Dose 100 mcg .ROUTE .STK-MED ONE Stop: 04/12/17 20:34 Ampicillin Sodium 2 gm/ Sodium (Chloride) 100 mls @ 200 mls/hr IV ONETIME ONE Stop: 04/12/17 01:04 Last Admin: 04/13/17 04:42 Dose: Not Given Ampicillin Sodium 2 gm/ Sodium (Chloride) 100 mls @ 200 mls/hr IV ONETIME ONE Stop: 04/12/17 13:00 Last Admin: 04/12/17 12:53 Dose: 200 mls/hr Ropivacaine (Naropin 0.2%) Confirm Administered Dose 100 mls @ as directed .ROUTE .ST-MED ONE Stop: 04/12/17 13:20 Last Admin: 04/13/17 04:44 Dose: Not Given Ampicillin Sodium 1 gm/ Sodium (Chloride) 50 mls @ 100 mls/hr IV Q4H [facility] Last Admin: 04/13/17 11:26 Dose: Not Given Sodium Chloride (Normal Saline) Confirm Administered Dose 20 mls @ as directed .ROUTE .[facility]-MED ONE Stop: 04/12/17 21:03 Ketorolac Tromethamine (Toradol) 30 mg IVPUSH Q6H ML Stop: 04/13/17 21:31 Last Admin: 04/13/17 21:24 Dose: 30 mg Lidocaine (Xylocaine-Mpf 2%) Confirm Administered Dose 20 ml .ROUTE .ST-MED ONE Stop: 04/12/17 20:36 Misoprostol (Cytotec) 25 mcg VAG Q4H PRN PRN Reason: Cervical Ripening Last Admin: 04/12/17 05:19 Dose: 25 mcg Misoprostol (Cytotec) 25 mcg PO Q4H [facility] Last Admin: 04/12/17 05:21 Dose: 25 mcg Misoprostol (Cytotec) 25 mcg PO Q4H [facility] Last Admin: 04/13/17 11:26 Dose: Not Given Morphine Sulfate (Duramorph Pf) Confirm Administered Dose 10 mg .ROUTE .STK-MED ONE Stop: 04/12/17 20:34 Nalbuphine HCl (Nubain) 10 mg IVPUSH Q1H PRN PRN Reason: Pain (severe 7-10) Last Admin: 04/12/17 12:49 Dose: 10 mg Nalbuphine HCl (Nubain) Confirm Administered Dose 10 mg .ROUTE .STK-MED ONE Stop: 04/12/17 21:30 Nalbuphine HCl (Nubain) 10 mg IVPUSH Q3H PRN PRN Reason: Pain (moderate 4-6) Stop: 04/13/17 18:00 Octyl Cyanoacrylate (Dermabond Advance) Confirm Administered Dose 1 applic .ROUTE .STK-MED ONE Stop: 04/12/17 21:23 Oxytocin (Pitocin) Confirm Administered Dose 20 unit .ROUTE .STK-MED ONE Stop: 04/12/17 21:24 - Exam General: Reports: Alert, Oriented, Cooperative, No Acute Distress Lungs: Reports: Clear to Auscultation, Normal Respiratory Effort Cardiovascular: Reports: Regular Rate, Regular Rhythm, No Murmurs GI/Abdominal Exam: Soft, Non-Tender (Female) Exam: Vaginal Bleeding Rectal (Female) Exam: Deferred Back Exam: Reports: Full Range of Motion Extremities: Normal Range of Motion, Non-Tender, No Pedal Edema, Normal Capillary Refill, Pedal Edema Skin: Reports: Warm, Dry, Intact Wound/Incisions: Reports: Healing Well, No Drainage Neurological: Reports: No New Focal Deficit, Normal Speech, Normal Tone Psy/Mental Status: Reports: Alert, Normal Affect, Normal Mood *Q Meaningful Use (DIS) - VTE *Q VTE Criteria *Q: - Stroke *Q Stroke Criteria *Q: - AMI *Q AMI Criteria *Q:
[2017-04-14] MEDS: Docusate Sodium 100 MG Cap PO SCH ×2 (10:38→22:58)
[2017-04-14] MEDS: Ibuprofen 800 MG Tab PO PRN (17:27)
[2017-04-15] MEDS: Ibuprofen 800 MG Tab PO PRN (08:37)
[2017-04-15] MEDS: Docusate Sodium 100 MG Cap PO SCH (08:37)
== END 2017-04-15 13:00 | disposition home or self-care (01) | DRG 540 ==
LOC: MW.OBCHECK 23:51 → MW.OB 23:52 → MW.OBCHECK 04-12 00:35 → MW.OB 04-12 00:35 → OBSVTOIN 04-12 21:05 → MW.OB 04-12 21:55
PROVIDERS: ADMIT Obstetrics & Gynecology; ATTEND Obstetrics & Gynecology
PROC: 10D00Z1 Extraction of Products of Conception, Low, Open Approach (ICD-10-PCS; principal; 2017-04-12)
PROC: 10907ZC Drainage of Amniotic Fluid, Therapeutic from Products of Conception, Via Natural or Artificial Opening (ICD-10-PCS; 2017-04-12)
PROC: 3E0P7VZ Introduction of Hormone into Female Reproductive, Via Natural or Artificial Opening (ICD-10-PCS; 2017-04-12)
PROC: 3E033VJ Introduction of Other Hormone into Peripheral Vein, Percutaneous Approach (ICD-10-PCS; 2017-04-12)
DX: O48.0 Post-term pregnancy (principal); O76 Abnormality in fetal heart rate and rhythm complicating labor and delivery; Z3A.40 40 weeks gestation of pregnancy; Z37.0 Single live birth
CPT/HCPCS: 01967; 01968; 36415; 59025; 85014; 85018; 85027; 86850; 86900; 86901; A9270-GY; J0290; J0690; J1885; J2270; J2300; J2590; J3010; J7030; J7050; J7120

== ENCOUNTER 2020-05-23 09:14 | Emergency (ER) | payer OTHER ==
[2020-05-23] MEDS ORDERED: Sodium Chloride 0.9% 10 ML Syringe FLUSH PRN (09:25)
[2020-05-23] MEDS ORDERED: Sodium Chloride 0.9% 1,000 ML IV ONE (09:25)
[2020-05-23] MEDS ORDERED: Sodium Chloride 0.9% 2.5 ML Syringe FLUSH PRN (09:25)
[2020-05-23] MEDS ORDERED: Ketorolac 15 MG/ML SDV IVPUSH ONE (09:26)
[2020-05-23] MEDS ORDERED: Acetaminophen/Codeine 300-30 MG Tab PO ONE (09:27)
--- NOTE | 2020-05-23 09:29 | EDM.PDOC ---
ED HPI GENERAL MEDICAL PROBLEM - General Chief Complaint: General Stated Complaint: COVID POSITIVE WITH CHEST PAIN Time Seen by Provider: 05/23/20 09:15 Source of Information: Reports: Patient History Limitations: Reports: No Limitations - History of Present Illness INITIAL COMMENTS - FREE TEXT/NARRATIVE: 34F PMHx COVID-19 diagnosed roughly 11 days ago presents for painful cough. Patient has noted cough for last couple of weeks, non-productive. Last night she felt a chest pressure/pain which is much worse with coughing and deep breathing. Notes SOB and inability to take in deep breath 2/2 pain. Pain is substernal chest radiating to back. 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 ED EXAM, GENERAL - Physical Exam Exam: See Below Exam Limited By: No Limitations General Appearance: Alert, WD/WN, No Apparent Distress, Anxious Throat/Mouth: Normal Voice, No Airway Compromise Head: Atraumatic, Normocephalic Neck: Normal Inspection Respiratory/Chest: No Respiratory Distress, Lungs Clear, Normal Breath Sounds, No Accessory Muscle Use Cardiovascular: Normal Peripheral Pulses, Regular Rate, Rhythm, No Edema Extremities: Normal Inspection Neurological: Alert, Normal Gait Psychiatric: Normal Affect, Normal Mood, Anxious Skin Exam: Warm, Dry, Intact, Normal Color Course - Vital Signs Last Recorded V/S: Last Vital Signs Temp 97 F 05/23/20 09:21 Pulse 60 05/23/20 12:22 Resp 18 05/23/20 12:22 BP 133/79 05/23/20 12:22 Pulse Ox 97 05/23/20 12:22 - Orders/Labs/Meds Orders: Active Orders 24 hr Category Date Time Status EKG Documentation Completion [RC] STAT Care 05/23/20 09:25 Active Pulse Oximetry [RC] ASDIRECTED Care 05/23/20 09:25 Active Sodium Chloride 0.9% [Saline Flush] Med 05/23/20 09:25 Active 10 ml FLUSH ASDIRECTED PRN Sodium Chloride 0.9% [Saline Flush] Med 05/23/20 09:25 Active 2.5 ml FLUSH ASDIRECTED PRN Saline Lock Insert [OM.PC] Stat Oth 05/23/20 09:25 Ordered Medication Orders Sodium Chloride (Saline Flush) 10 ml FLUSH ASDIRECTED PRN PRN Reason: Keep Vein Open Last Admin: 05/23/20 09:31 Dose: 10 ml Documented by: BRIDGER Sodium Chloride (Saline Flush) 2.5 ml FLUSH ASDIRECTED PRN PRN Reason: Keep Vein Open Last Admin: 05/23/20 09:31 Dose: 2.5 ml Documented by: BRIDGER Labs: Laboratory Tests 05/23/20 05/23/20 05/23/20 Range/Units 09:45 09:45 09:45 WBC 5.06 (4.0-11.0) K/uL RBC 4.70 (4.30-5.90) M/uL Hgb 12.9 (12.0-16.0) g/dL Hct 41.0 (36.0-46.0) % MCV 87.2 (80.0-98.0) fL MCH 27.4 (27.0-32.0) pg MCHC 31.5 (31.0-37.0) g/dL RDW Std Deviation 43.5 (28.0-62.0) fl RDW Coeff of Tracie 14 (11.0-15.0) % Plt Count 236 (150-400) K/uL MPV 11.60 (7.40-12.00) fL Add Manual Diff YES Neutrophils % (Manual) 65 (48.0-80.0) % Band Neutrophils % 1 % Lymphocytes % (Manual) 25 (16.0-40.0) % Monocytes % (Manual) 8 (0.0-15.0) % Eosinophils % (Manual) 1 (0.0-7.0) % Nucleated RBC % 0.0 /100WBC Absolute Seg Neuts 3.3 (1.4-5.7) Band Neutrophils # 0.1 Lymphocytes # (Manual) 1.3 (0.6-2.4) Monocytes # (Manual) 0.4 (0.0-0.8) Eosinophils # (Manual) 0.1 (0.0-0.7) Nucleated RBCs # 0 K/uL INR 0.97 APTT 26.9 (18.6-31.3) SEC D-Dimer, Quantitative 0.54 H (0.0-0.50) mg/L FEU Lactate 1.4 (0.20-2.00) mmol/L Sodium (136-145) mmol/L Potassium (3.5-5.1) mmol/L Chloride (98-107) mmol/L Carbon Dioxide (21.0-32.0) mmol/L BUN (7.0-18.0) mg/dL Creatinine (0.6-1.0) mg/dL Est Cr Clr Drug Dosing mL/min Estimated GFR (MDRD) ml/min Glucose (74-106) mg/dL Calcium (8.5-10.1) mg/dL Total Bilirubin (0.2-1.0) mg/dL AST (15-37) IU/L ALT (14-63) IU/L Alkaline Phosphatase (46-116) U/L Troponin I (0.000-0.056) ng/mL B-Natriuretic Peptide (<100) PG/ML Total Protein (6.4-8.2) g/dL Albumin (3.4-5.0) g/dL Globulin (2.6-4.0) g/dL Albumin/Globulin Ratio (0.9-1.6) HCG, Qual (NEG) 05/23/20 05/23/20 05/23/20 Range/Units 09:45 09:45 09:45 WBC (4.0-11.0) K/uL RBC (4.30-5.90) M/uL Hgb (12.0-16.0) g/dL Hct (36.0-46.0) % MCV (80.0-98.0) fL MCH (27.0-32.0) pg MCHC (31.0-37.0) g/dL RDW Std Deviation (28.0-62.0) fl RDW Coeff of Tracie (11.0-15.0) % Plt Count (150-400) K/uL MPV (7.40-12.00) fL Add Manual Diff Neutrophils % (Manual) (48.0-80.0) % Band Neutrophils % % Lymphocytes % (Manual) (16.0-40.0) % Monocytes % (Manual) (0.0-15.0) % Eosinophils % (Manual) (0.0-7.0) % Nucleated RBC % /100WBC Absolute Seg Neuts (1.4-5.7) Band Neutrophils # Lymphocytes # (Manual) (0.6-2.4) Monocytes # (Manual) (0.0-0.8) Eosinophils # (Manual) (0.0-0.7) Nucleated RBCs # K/uL INR APTT (18.6-31.3) SEC D-Dimer, Quantitative (0.0-0.50) mg/L FEU Lactate (0.20-2.00) mmol/L Sodium 141 (136-145) mmol/L Potassium 3.1 L (3.5-5.1) mmol/L Chloride 105 (98-107) mmol/L Carbon Dioxide 26.6 (21.0-32.0) mmol/L BUN 9 (7.0-18.0) mg/dL Creatinine 0.7 (0.6-1.0) mg/dL Est Cr Clr Drug Dosing 96.86 mL/min Estimated GFR (MDRD) > 60.0 ml/min Glucose 105 (74-106) mg/dL Calcium 8.4 L (8.5-10.1) mg/dL Total Bilirubin 0.5 (0.2-1.0) mg/dL AST 46 H (15-37) IU/L ALT 82 H (14-63) IU/L Alkaline Phosphatase 78 (46-116) U/L Troponin I < 0.050 (0.000-0.056) ng/mL B-Natriuretic Peptide 25 (<100) PG/ML Total Protein 7.4 (6.4-8.2) g/dL Albumin 3.0 L (3.4-5.0) g/dL Globulin 4.4 H (2.6-4.0) g/dL Albumin/Globulin Ratio 0.7 L (0.9-1.6) HCG, Qual NEGATIVE (NEG) Meds: Medications Generic Name Dose Route Start Last Admin Trade Name Freernie PRN Reason Stop Dose Admin Sodium Chloride 10 ml 05/23/20 09:25 05/23/20 09:31 Saline Flush FLUSH 10 ml ASDIRECTED PRN Administration Keep Vein Open Sodium Chloride 2.5 ml 05/23/20 09:25 05/23/20 09:31 Saline Flush FLUSH 2.5 ml ASDIRECTED PRN Administration Keep Vein Open Discontinued Medications Generic Name Dose Route Start Last Admin Trade Name Freq PRN Reason Stop Dose Admin Acetaminophen/Codeine Phosphate 1 tab 05/23/20 09:27 05/23/20 09:31 Tylenol With Codeine No.3 300mg/30mg PO 05/23/20 09:28 1 tab ONETIME ONE Administration Sodium Chloride 1,000 mls @ 999 mls/hr 05/23/20 09:25 05/23/20 09:32 Normal Saline IV 05/23/20 10:25 999 mls/hr .Bolus ONE Administration Iopamidol 75 ml 05/23/20 11:49 05/23/20 11:51 Isovue Multipack-370 (76%) IVPUSH 05/23/20 11:50 75 ml ONETIME STA Administration Ketorolac Tromethamine 15 mg 05/23/20 09:26 05/23/20 09:32 Toradol IVPUSH 05/23/20 09:27 15 mg ONETIME ONE Administration - Re-Assessments/Exams Free Text/Narrative Re-Assessment/Exam: 05/23/20 09:44 Will get labs including D-dimer to r/o PE in setting of COVID infection. More likely costochondritis/CP 2/2 forceful coughing so will treat with antitussive/analgesic codeine. Will f/u resutls and dispo accordingly 05/23/20 12:49 CT imaging is negative for pulmonary embolism. There is evidence of mild Covid pneumonia. Will discharge patient with cough suppressant. Return precautions discussed at length. Departure - Departure Time of Disposition: 12:50 Disposition: Home, Self-Care 01 Condition: Good Clinical Impression: COVID-19 - Discharge Information Instructions: COVID-19 Frequently Asked Questions Referrals: PCP,None [Primary Care Provider] - Forms: ED Department Discharge Additional Instructions: The following information is given to patients seen in the emergency department who are being discharged to home. This information is to outline your options for follow-up care. We provide all patients seen in our emergency department with a follow-up referral. The need for follow-up, as well as the timing and circumstances, are variable depending upon the specifics of your emergency department visit. If you don't have a primary care physician on staff, we will provide you with a referral. We always advise you to contact your personal physician following an emergency department visit to inform them of the circumstance of the visit and for follow-up with them and/or the need for any referrals to a consulting specialist. The emergency department will also refer you to a specialist when appropriate. This referral assures that you have the opportunity for follow-up care with a specialist. All of these measure are taken in an effort to provide you with optimal care, which includes your follow-up. Under all circumstances we always encourage you to contact your private ysician who remains a resource for coordinating your care. When calling for follow-up care, please make the office aware that this follow-up is from your recent emergency room visit. If for any reason you are refused follow-up, please contact the [facility] Emergency Department at and asked to speak to the emergency department charge nurse. Please follow up with your primary care physician. If you do not have a primary care physician, see below: [facility] [address] [place] [id number] [facility] [address] [place] [id number] [facility] [address] [place] [id number] Sepsis Event Note (ED) - Evaluation Sepsis Screening Result: No Definite Risk - Focused Exam Vital Signs: Vital Signs Temp Pulse Resp BP Pulse Ox 05/23/20 12:22 60 18 133/79 97 05/23/20 11:52 59 L 18 125/76 97 05/23/20 11:23 78 17 125/80 96 05/23/20 10:52 69 17 123/70 99 05/23/20 10:22 58 L 18 124/72 98 05/23/20 09:52 62 17 124/70 97 05/23/20 09:21 97 F 88 20 174/85 H 96 - My Orders Last 24 Hours: My Active Orders 05/23/20 09:25 EKG Documentation Completion [RC] STAT Pulse Oximetry [RC] ASDIRECTED Sodium Chloride 0.9% [Saline Flush] 10 ml FLUSH ASDIRECTED PRN Sodium Chloride 0.9% [Saline Flush] 2.5 ml FLUSH ASDIRECTED PRN Saline Lock Insert [OM.PC] Stat - Assessment/Plan Last 24 Hours: My Active Orders 05/23/20 09:25 EKG Documentation Completion [RC] STAT Pulse Oximetry [RC] ASDIRECTED Sodium Chloride 0.9% [Saline Flush] 10 ml FLUSH ASDIRECTED PRN Sodium Chloride 0.9% [Saline Flush] 2.5 ml FLUSH ASDIRECTED PRN Saline Lock Insert [OM.PC] Stat
--- NOTE | 2020-05-23 10:09 | CR ---
INDICATION: COVID positive. Shortness of breath. TECHNIQUE: Chest 1 view COMPARISON: None FINDINGS: Cardiovascular and mediastinum: Heart size and vasculature are normal in caliber and appearance. Lungs and pleural spaces: Lungs are clear. No sign of infiltrate or mass. No sign of pleural effusion. No pneumothorax. Bones and soft tissues: No significant findings. IMPRESSION: Negative chest. No sign of pneumonia. Dictated by Karlo Dougherty MD @ May 23 2020 10:06AM Signed by Dr. Karlo Dougherty @ May 23 2020 10:07AM
[2020-05-23 10:25] LABS: BLOOD UREA NITROGEN,BUN 9 mg/dL (7.0-18.0); CARBON DIOXIDE,CO2 26.6 mmol/L (21.0-32.0); CHLORIDE,CL 105 mmol/L (98-107); GLUCOSE RANDOM 105 mg/dL (74-106); POTASSIUM,K 3.1 mmol/L (3.5-5.1); SODIUM,NA 141 mmol/L (136-145)
[2020-05-23] MEDS ORDERED: Iopamidol 755 MG/ML 500 ML Multipack Bottle IVPUSH STA (11:49)
--- NOTE | 2020-05-23 12:33 | CT ---
INDICATION: Chest patient, COVID TECHNIQUE: CT chest pulmonary angiogram acquired with IV contrast. COMPARISON: None FINDINGS: Cardiovascular structures: Normal vascular enhancement of the pulmonary arteries, no sign of pulmonary embolism. Heart size is normal. No sign of aneurysm or dissection in the thoracic aorta. Mediastinum and isaura: No mass or adenopathy. Lungs: Bilateral areas of ground-glass appearance and airspace opacities consistent with pneumonia. COVID pneumonia suspected. Pleura and pericardium: No effusions. Chest wall and axilla: No mass or adenopathy. Bones: No significant findings. Upper abdomen: Unremarkable. IMPRESSION: No pulmonary embolus. Bilateral areas of ground-glass appearance and airspace opacities consistent with pneumonia pre COVID pneumonia suspected Please note that all CT scans at this facility use dose modulation, iterative reconstruction, and/or weight-based dosing when appropriate to reduce radiation dose to as low as reasonably achievable. Dictated by Andrea Valdez MD @ May 23 2020 12:26PM Signed by Dr. Andrea Valdez @ May 23 2020 12:31PM
== END 2020-05-23 13:06 | disposition home or self-care (01) ==
LOC: MW.ED 09:14
DX: U07.1 COVID-19 (principal)
CPT/HCPCS: 36415; 71045; 71275; 80053; 83605; 83880; 84484; 84703; 85025; 85379; 85610; 85730; 93005; 96374; 99285; A9270; J1885; J7030; Q9967

== ENCOUNTER 2023-05-27 22:52 | Emergency (ER) | payer BC ==
[2023-05-27] MEDS: Sodium Chloride 0.9% 10 ML Syringe FLUSH PRN (23:42)
[2023-05-27] MEDS: Sodium Chloride 0.9% 2.5 ML Syringe FLUSH PRN (23:42)
[2023-05-27] MEDS: Morphine 4 MG/ML Syringe IVPUSH ONE (23:42)
[2023-05-27] MEDS: Ondansetron 4 MG/2 ML SDV IVPUSH ONE (23:42)
[2023-05-27 23:55] LABS: BASOPHILS ABSOLUTE AUTO 0.02 K/uL (0.00-0.20); BASOPHILS PERCENT AUTO 0.1 % (0.0-1.0); EOSINOPHILS ABSOLUTE AUTO 0.11 K/uL (0.00-0.45); EOSINOPHILS PERCENT AUTO 0.7 % (0.0-6.0); HEMATOCRIT 40.1 % (37.0-47.0); HEMOGLOBIN 12.9 g/dL (12.0-16.0); IMMATURE GRAN ABSOLUTE AUTO 0.03 K/uL (0.00-0.05); IMMATURE GRAN PERCENT AUTO 0.2 % (0.0-0.4); LYMPHOCYTES ABSOLUTE AUTO 2.64 K/uL (1.00-4.80); LYMPHOCYTES PERCENT AUTO 17.1 % (24.0-44.0); MEAN CORPUSCULAR HEMOGLOBIN 27.1 pg (28.0-32.0); MEAN CORPUSCULAR HGB CONC 32.2 g/dL (32.0-36.0); MEAN CORPUSCULAR VOLUME 84.2 fL (83.0-99.0); MEAN PLATELET VOLUME 11.4 fL (9.4-12.3); MONOCYTES ABSOLUTE AUTO 0.99 K/uL (0.00-0.80); MONOCYTES PERCENT AUTO 6.4 % (0.0-8.0); NEUTROPHILS ABSOLUTE AUTO 11.69 K/uL (1.80-7.70); NEUTROPHILS PERCENT AUTO 75.5 % (41.0-71.0); PLATELET COUNT,PLT 329 K/uL (150-400); RED BLOOD CELL COUNT 4.76 M/uL (4.10-5.30); WHITE BLOOD CELL COUNT,WBC 15.48 K/uL (3.9-11.3)
[2023-05-28 00:15] LABS: APPEARANCE,URINE SLT CLOUDY; BILIRUBIN,URINE NEGATIVE (NEGATIVE); COLOR,URINE YELLOW; GLUCOSE,URINE NEGATIVE (NEGATIVE); KETONES,URINE NEGATIVE (NEGATIVE); LEUKOCYTE ESTERASE,URINE MODERATE (NEGATIVE); NITRITE,URINE POSITIVE (NEGATIVE); OCCULT BLOOD,URINE LARGE (NEGATIVE); PROTEIN,URINE 30 mg/dL (NEGATIVE); UROBILINOGEN,URINE 0.2 EU/dL (<2.0)
[2023-05-28 00:23] LABS: RBC,URINE 15-20 (0-2/HPF); WBC,URINE 35-40 (0-5/HPF)
[2023-05-28 00:24] LABS: BACTERIA,URINE 1+ (NEGATIVE); EPITHELIAL CELLS,URINE RARE (NONE-FEW)
[2023-05-28 00:30] LABS: A/G RATIO 0.8 (0.9-1.6); ALBUMIN 3.6 g/dL (3.4-5.0); BILIRUBIN TOTAL 0.4 mg/dL (0.2-1.0); CALCIUM 9.1 mg/dL (8.5-10.1); CARBON DIOXIDE,CO2 28.3 mmol/L (21.0-32.0); EST CRCL DRUG DOSING (CG) 74.18 mL/min; PROTEIN TOTAL,TP 8.2 g/dL (6.4-8.2)
[2023-05-28] MEDS: Iopamidol 755 MG/ML 500 ML Multipack Bottle IVPUSH STA (01:08)
[2023-05-28] MEDS: cefTRIAXone 1 GM in Sodium Chloride 0.9% 50 ML IV ONE (01:35)
== END 2023-05-28 02:09 | disposition home or self-care (01) ==
LOC: MW.ED 22:52
DX: N39.0 Urinary tract infection, site not specified (principal); Z75.3 Unavailability and inaccessibility of health-care facilities
CPT/HCPCS: 36415; 74177; 80053; 81001; 84703; 85025; 96365; 96375; 99284; 99284-25; J0696; J2270; J2405; J3490; Q9967